=== PATIENT | female | born 1945 | race Caucasian/White ===

== ENCOUNTER 2023-08-08 09:54 | Outpatient (RCR) | payer MEDICARE, OTHER, SELFPAY | END 2023-08-08 23:59 | disposition home or self-care (01) | LOC: RPT 09:54 | PROVIDERS: ATTENDING PHYSICIAN Urology; PRIMARYCARE PHYSICIAN Internal Medicine Geriatric Medicine | DX: M62.89 Other specified disorders of muscle (principal); K59.00 Constipation, unspecified; M62.81 Muscle weakness (generalized); N39.41 Urge incontinence; R27.8 Other lack of coordination | CPT/HCPCS: 97014; 97110; 97530 ==

== ENCOUNTER 2023-09-12 10:55 | Outpatient (RCR) | payer MEDICARE, OTHER, SELFPAY | END 2023-09-12 23:59 | disposition home or self-care (01) | LOC: RPT 10:55 | PROVIDERS: ATTENDING PHYSICIAN Urology; PRIMARYCARE PHYSICIAN Internal Medicine Geriatric Medicine | DX: M62.89 Other specified disorders of muscle (principal); K59.00 Constipation, unspecified; N32.81 Overactive bladder; N39.41 Urge incontinence; Z73.6 Limitation of activities due to disability; M62.81 Muscle weakness (generalized); R27.8 Other lack of coordination | CPT/HCPCS: 97014; 97110; 97112; 97530 ==

== ENCOUNTER 2023-10-13 06:31 | Outpatient (RCR) | payer MEDICARE, OTHER, SELFPAY | END 2023-10-13 12:53 | disposition home or self-care (01) | LOC: RPT 06:31 | PROVIDERS: ATTENDING PHYSICIAN Urology; PRIMARYCARE PHYSICIAN Internal Medicine Geriatric Medicine | DX: M62.89 Other specified disorders of muscle (principal); K59.00 Constipation, unspecified; N32.81 Overactive bladder; N39.41 Urge incontinence; Z73.6 Limitation of activities due to disability; M62.81 Muscle weakness (generalized); R27.8 Other lack of coordination | CPT/HCPCS: 97014; 97112; 97530 ==

== ENCOUNTER → 2023-10-24 06:20 | Day surgery (SDC) | payer MEDICARE, OTHER, SELFPAY ==
[2023-10-10 13:00] VITALS: BMI 28.8
[2023-10-24] VITALS (10 sets, daily range): BP systolic 112–141; BP diastolic 64–99; BMI 28.8
[2023-10-24] MEDS: Pyridium 200 MG PO (09:30)
[2023-10-24] MEDS: NORMOSOL-R 1000 IV (09:30)
[2023-10-24] MEDS: DILAUDID 0.25 MG IV ×4 (11:58→12:18)
== END ==
LOC: SDS 06:20
PROVIDERS: ATTENDING PHYSICIAN Obstetrics & Gynecology
DX: N81.11 Cystocele, midline (principal); N81.6 Rectocele
CPT/HCPCS: 57260

== ENCOUNTER → 2023-12-26 10:12 | Outpatient (REF) | payer MEDICARE, OTHER, SELFPAY ==
[2023-12-26 11:19] LABS: % Basophils 0.3 % (0-2); % Eosinophils 1.4 % (0-6); % Immature Granulocytes 0.6 % (0-0.5); % Lymphocytes 38.4 % (20.5-51.1); % Monocytes 6.1 % (1.7-9.3); % Neutrophils 53.2 % (42.2-75.2); Absolute Eosinophils 0.1 10^3/uL (0-0.7); Absolute Lymphocytes 1.3 10^3/uL (1.2-3.4); Absolute Monocytes 0.2 10^3/uL (0.1-0.6); Absolute Neutrophils 1.8 10^3/uL (1.4-6.5); Hematocrit 40.9 % (37.0-47.0); Mean Corp Hgb Conc. 34.2 g/dL (33.0-37.0); Mean Corpuscular Hgb 34.1 pg (27.0-31.0); Mean Corpuscular Volume 99.5 fL (81.0-99.0); Mean Platelet Volume 10.2 fL (7.4-10.4); Nucleated Red Blood Cells % 0 %; Platelet Count 150 10^3/uL (130-400); Red Blood Cell Count 4.11 10^6/uL (4.20-5.40); Red Cell Dist. Width 11.9 % (11.5-14.5); White Blood Cell Count 3.5 10^3/uL (4.8-10.8)
[2023-12-26 11:21] LABS: Urine Albumin Negative (Neg - Trace); Urine Bilirubin Negative (Negative); Urine Character Slightly Cloudy (Clear); Urine Color Yellow; Urine Glucose Negative (Negative); Urine Ketone Negative (Negative); Urine Leukocyte 2+ (Negative); Urine Nitrite Negative (Negative); Urine Occult Blood Negative (Negative); Urine Urobilinogen Negative (Neg - 1+)
[2023-12-26 11:30] LABS: Urine Mucus Few
[2023-12-26 11:31] LABS: Urine Amorphous Seen; Urine Urothelial Cell >30 /LPF (FEW)
[2023-12-26 11:33] LABS: Urine Red Blood Cell 0-2 /HPF (0-2); Urine White Cell 16-20 /HPF (0-5)
[2023-12-26 11:37] LABS: Urine Bacteria Few (Negative)
[2023-12-26 14:30] LABS: ALT (SGPT) 26 U/L (0-35); AST (SGOT) 30 U/L (14-36); Albumin 4.2 g/dl (3.5-5.0); Alkaline Phosphatase 71 U/L (38-126); Blood Urea Nitrogen 19 mg/dl (7-17); Calcium 9.7 mg/dl (8.4-10.2); Carbon Dioxide 29 mmol/L (22-30); Chloride 106 mmol/L (98-107); Glucose 89 mg/dl (70-99); HDL Cholesterol 99 mg/dl; LDL Cholesterol, Calculated 102 mg/dl; Potassium 4.4 mmol/L (3.5-5.1); Sodium 137 mmol/L (135-145); Total Bilirubin 0.9 mg/dl (0.2-1.3); Total Cholesterol 216 mg/dl (50-199); Total Protein 6.8 g/dl (6.3-8.2); Triglyceride 78 mg/dl (10-149); Very Low Density Lipoprotein 15 mg/dl (0-30); eGFR > 60.00
[2023-12-26 16:10] LABS: Vitamin D, 25-OH*** 51.7 ng/mL (30-80)
== END ==
LOC: REG 10:12
PROVIDERS: ATTENDING PHYSICIAN Internal Medicine Geriatric Medicine
DX: Z00.00 Encounter for general adult medical examination without abnormal findings (principal); K57.30 Diverticulosis of large intestine without perforation or abscess without bleeding; K64.5 Perianal venous thrombosis; R26.9 Unspecified abnormalities of gait and mobility; I10 Essential (primary) hypertension; E78.2 Mixed hyperlipidemia; M71.21 Synovial cyst of popliteal space [Baker], right knee; M79.609 Pain in unspecified limb; I83.93 Asymptomatic varicose veins of bilateral lower extremities; F33.8 Other recurrent depressive disorders; R09.89 Other specified symptoms and signs involving the circulatory and respiratory systems; R06.02 Shortness of breath; Z13.89 Encounter for screening for other disorder; N39.0 Urinary tract infection, site not specified; E55.9 Vitamin D deficiency, unspecified
CPT/HCPCS: 36415; 80053; 80061; 81003; 81015; 82306; 85025

== ENCOUNTER 2023-12-27 11:08 | Outpatient (RCR) | payer MEDICARE, OTHER, SELFPAY | END 2023-12-27 23:59 | disposition home or self-care (01) | LOC: RPT 11:08 | PROVIDERS: ATTENDING PHYSICIAN Obstetrics & Gynecology; FAMILY PHYSICIAN Internal Medicine Geriatric Medicine | DX: M62.89 Other specified disorders of muscle (principal); K59.00 Constipation, unspecified; N32.81 Overactive bladder; N39.41 Urge incontinence; Z73.6 Limitation of activities due to disability | CPT/HCPCS: 97140; 97163; 97530 ==

== ENCOUNTER → 2024-01-17 10:55 | Outpatient (REF) | payer MEDICARE, OTHER, SELFPAY | LOC: WDC 10:55 | PROVIDERS: ATTENDING PHYSICIAN Internal Medicine Geriatric Medicine | DX: Z12.31 Encounter for screening mammogram for malignant neoplasm of breast (principal) | CPT/HCPCS: 77063; 77067 ==

== ENCOUNTER → 2024-05-11 11:31 | Outpatient (REF) | payer MEDICARE, OTHER, SELFPAY | LOC: RAD 11:31 | PROVIDERS: ATTENDING PHYSICIAN Internal Medicine Gastroenterology; FAMILY PHYSICIAN Internal Medicine Geriatric Medicine | DX: K59.09 Other constipation (principal) | CPT/HCPCS: 74018 ==

== ENCOUNTER → 2024-06-01 06:24 | Day surgery (SDC) | payer MEDICARE, OTHER, SELFPAY ==
[2024-06-01 10:48] LABS: COVID-19 Antigen Negative (Negative)
== END ==
LOC: GI 06:24
PROVIDERS: ATTENDING PHYSICIAN Internal Medicine Gastroenterology; FAMILY PHYSICIAN Internal Medicine Geriatric Medicine
DX: Z12.11 Encounter for screening for malignant neoplasm of colon (principal); K57.30 Diverticulosis of large intestine without perforation or abscess without bleeding; K64.8 Other hemorrhoids; K62.1 Rectal polyp; D12.3 Benign neoplasm of transverse colon; Z86.0101 Personal history of adenomatous and serrated colon polyps
CPT/HCPCS: 45385; 45380; 88305; 87811

== ENCOUNTER → 2024-06-05 12:04 | Outpatient (REF) | payer MEDICARE, OTHER, SELFPAY ==
[2024-06-05 20:02] LABS: Urine Albumin 2+ (Neg - Trace); Urine Bilirubin Negative (Negative); Urine Character Very Cloudy (Clear); Urine Color Yellow; Urine Glucose Negative (Negative); Urine Ketone Negative (Negative); Urine Leukocyte 2+ (Negative); Urine Nitrite Positive (Negative); Urine Occult Blood 4+ (Negative); Urine Specific Gravity 1.015 (<1.030); Urine Urobilinogen Negative (Neg - 1+)
[2024-06-05 20:31] LABS: Urine White Cell >100 /HPF (0-5)
== END ==
LOC: CLAB 12:04
PROVIDERS: ATTENDING PHYSICIAN Urology
DX: N30.01 Acute cystitis with hematuria (principal)
CPT/HCPCS: 81003; 81015; 87086

== ENCOUNTER 2024-07-17 08:20 | Outpatient (RCR) | payer MEDICARE, OTHER, SELFPAY | END 2024-07-17 23:59 | disposition home or self-care (01) | LOC: RPT 08:20 | PROVIDERS: ATTENDING PHYSICIAN Urology; FAMILY PHYSICIAN Internal Medicine Geriatric Medicine | DX: N39.0 Urinary tract infection, site not specified (principal); N32.81 Overactive bladder; K59.00 Constipation, unspecified; M62.89 Other specified disorders of muscle; Z73.6 Limitation of activities due to disability; R27.8 Other lack of coordination; M62.838 Other muscle spasm | CPT/HCPCS: 97163; 97530 ==

== ENCOUNTER → 2024-07-20 09:26 | Outpatient (REF) | payer MEDICARE, OTHER, SELFPAY ==
[2024-07-20 11:45] LABS: % Basophils 0.5 % (0-2); % Eosinophils 1.4 % (0-6); % Immature Granulocytes 0.2 % (0-0.5); % Lymphocytes 27.1 % (20.5-51.1); % Monocytes 6.3 % (1.7-9.3); % Neutrophils 64.5 % (42.2-75.2); Absolute Eosinophils 0.1 10^3/uL (0-0.7); Absolute Lymphocytes 1.2 10^3/uL (1.2-3.4); Absolute Monocytes 0.3 10^3/uL (0.1-0.6); Absolute Neutrophils 2.8 10^3/uL (1.4-6.5); Hematocrit 42.8 % (37.0-47.0); Hemoglobin 14.3 g/dL (12.0-16.0); Mean Corp Hgb Conc. 33.4 g/dL (33.0-37.0); Mean Corpuscular Volume 101.7 fL (81.0-99.0); Mean Platelet Volume 10.2 fL (7.4-10.4); Nucleated Red Blood Cells % 0 %; Platelet Count 146 10^3/uL (130-400); Red Blood Cell Count 4.21 10^6/uL (4.20-5.40); Red Cell Dist. Width 12.5 % (11.5-14.5); White Blood Cell Count 4.3 10^3/uL (4.8-10.8)
[2024-07-20 12:49] LABS: ALT (SGPT) 31 U/L (0-35); AST (SGOT) 31 U/L (14-36); Albumin 4.4 g/dl (3.5-5.0); Alkaline Phosphatase 66 U/L (38-126); Blood Urea Nitrogen 20 mg/dl (7-17); Calcium 9.4 mg/dl (8.4-10.2); Carbon Dioxide 31 mmol/L (22-30); Chloride 102 mmol/L (98-107); Glucose 80 mg/dl (70-99); HDL Cholesterol 104 mg/dl; LDL Cholesterol, Calculated 106 mg/dl; Potassium 4.5 mmol/L (3.5-5.1); Sodium 143 mmol/L (135-145); Total Bilirubin 0.9 mg/dl (0.2-1.3); Total Cholesterol 226 mg/dl (50-199); Total Protein 7.1 g/dl (6.3-8.2); Triglyceride 84 mg/dl (10-149); Very Low Density Lipoprotein 16 mg/dl (0-30); eGFR > 60.00
[2024-07-20 13:00] LABS: Free T4 1.21 ng/dl (0.78-2.19)
== END ==
LOC: REG 09:26
PROVIDERS: ATTENDING PHYSICIAN Internal Medicine Geriatric Medicine
DX: E78.2 Mixed hyperlipidemia (principal); I10 Essential (primary) hypertension; K64.5 Perianal venous thrombosis; R26.9 Unspecified abnormalities of gait and mobility; M79.609 Pain in unspecified limb; I83.93 Asymptomatic varicose veins of bilateral lower extremities; F33.8 Other recurrent depressive disorders; R09.89 Other specified symptoms and signs involving the circulatory and respiratory systems; R06.02 Shortness of breath; K59.00 Constipation, unspecified; Z13.89 Encounter for screening for other disorder; Z23 Encounter for immunization
CPT/HCPCS: 36415; 80053; 80061; 84439; 85025

== ENCOUNTER 2024-08-03 10:04 | Outpatient (RCR) | payer MEDICARE, OTHER, SELFPAY | END 2024-08-03 23:59 | disposition home or self-care (01) | LOC: RPT 10:04 | PROVIDERS: ATTENDING PHYSICIAN Urology; FAMILY PHYSICIAN Internal Medicine Geriatric Medicine | DX: N39.0 Urinary tract infection, site not specified (principal); N32.81 Overactive bladder (principal); K59.00 Constipation, unspecified; M62.89 Other specified disorders of muscle; Z73.6 Limitation of activities due to disability; R27.8 Other lack of coordination; Z87.440 Personal history of urinary (tract) infections; M62.838 Other muscle spasm | CPT/HCPCS: 97014; 97112; 97140; 97530 ==

== ENCOUNTER → 2024-09-10 09:14 | Outpatient (REF) | payer MEDICARE, OTHER, SELFPAY | LOC: RAD 09:14 | PROVIDERS: ATTENDING PHYSICIAN Internal Medicine Geriatric Medicine | DX: Z78.0 Asymptomatic menopausal state (principal); E78.2 Mixed hyperlipidemia; I10 Essential (primary) hypertension; K64.5 Perianal venous thrombosis; R26.9 Unspecified abnormalities of gait and mobility; M79.609 Pain in unspecified limb; I83.93 Asymptomatic varicose veins of bilateral lower extremities; F33.8 Other recurrent depressive disorders; R09.89 Other specified symptoms and signs involving the circulatory and respiratory systems; R06.02 Shortness of breath; K59.00 Constipation, unspecified; Z13.89 Encounter for screening for other disorder; Z23 Encounter for immunization | CPT/HCPCS: 77080 ==

== ENCOUNTER 2024-09-21 13:58 | Outpatient (RCR) | payer MEDICARE, OTHER, SELFPAY | END 2024-09-28 15:14 | disposition home or self-care (01) | LOC: RPT 13:58 | PROVIDERS: ATTENDING PHYSICIAN Urology; FAMILY PHYSICIAN Internal Medicine Geriatric Medicine | DX: N32.81 Overactive bladder (principal); K59.00 Constipation, unspecified; M62.89 Other specified disorders of muscle; Z73.6 Limitation of activities due to disability; R27.8 Other lack of coordination; M62.838 Other muscle spasm; Z87.440 Personal history of urinary (tract) infections; N39.0 Urinary tract infection, site not specified | CPT/HCPCS: 97530 ==

== ENCOUNTER → 2025-01-23 10:57 | Outpatient (REF) | payer MEDICARE, OTHER, SELFPAY | LOC: WDC 10:57 | PROVIDERS: ATTENDING PHYSICIAN Internal Medicine Geriatric Medicine | DX: R92.8 Other abnormal and inconclusive findings on diagnostic imaging of breast (principal) | CPT/HCPCS: 77063; 77067 ==